=== PATIENT | female | born 1960 | race Caucasian/White ===

== ENCOUNTER → 2020-07-15 12:25 | Outpatient (CLI) | payer OTHER, MEDICAID, SELFPAY ==
--- NOTE | 2020-07-15 | DI.RAD.S_ITS ---
PROCEDURE: XR LUMBAR SPINE 2-3V INDICATIONS: LOW BACK PAIN TECHNIQUE: 3 views of the lumbar spine were acquired. COMPARISON: None. FINDINGS: Bones: 5 [id number] vertebrae are present. Postsurgical changes compatible with L5-S1 interbody fusion and right hip arthroplasty noted. There is normal bony alignment. No vertebral body compression fractures. No suspicious bony lesions. Moderate L2-L3 and L3-L4 degenerative disc disease. Mild L4-L5 degenerative disc disease. Mild L2-L3, L3-L4, L4-L5 and L5-S1 facet arthropathy. Soft tissues: Overlying bowel gas pattern is normal. No suspicious soft tissue calcifications. IMPRESSION: 1. Status post L5-S1 interbody fusion. 2. Multilevel degenerative disc disease. 3. Multilevel facet arthropathy. 4. No fracture. No acute osseous lesion. If symptoms and/or clinical suspicion for pathology persists, evaluation with MRI should be considered for further assessment. Dictated by: Emily Bowling MD, PhD on 07/15/2020 at 17:40 Approved by: Emily Bowling MD, PhD on 07/15/2020 at 17:41
[2020-07-15 12:55] LABS: Add Manual Diff / Slide Review NO; Basophils Absolute Auto 100 /uL (0-100); Eosinophils Absolute Auto 100 /uL (0-450); Eosinophils Percent Auto 1.1 % (2-4); Hematocrit 44.1 % (36-46); Hemoglobin 14.7 g/dL (12.0-16.0); Lymphocytes Absolute Auto 2000 /uL (1100-4500); Lymphocytes Percent Auto 31.2 % (25-40); Mean Corpuscular HGB Conc 33.4 % (30-36); Mean Corpuscular Hemoglobin 33.5 PG (26-34); Mean Corpuscular Volume 100.2 fL (80-100); Monocytes Absolute Auto 700 /uL (0-900); Monocytes Percent Auto 10.8 % (3-14); Neutrophils Absolute Auto 3500 /uL (1500-7000); Neutrophils Percent Auto 55.9 % (50-75); Platelet Count 254 X10^3/uL (150-400); Red Cell Distribution Width 12.7 % (11.6-14.8); White Blood Cell Count 6.3 X10^3/uL (4.5-11.0)
[2020-07-15 13:12] LABS: Alanine Aminotransferase 18 IU/L (<35); Albumin 4.1 g/dL (3.5-5.0); Albumin Globulin Ratio 1.5 (1.0-2.8); Alkaline Phosphatase 111 U/L (38-126); BUN Creatinine Ratio 28.8 (6-22); Bilirubin Total 0.2 mg/dL (0.2-1.3); Blood Urea Nitrogen 17 mg/dL (7-17); Calcium 9.5 mg/dL (8.4-10.2); Carbon Dioxide 30 mmol/L (22-32); Chloride 104 mmol/L (98-107); Cholesterol 193 mg/dL (140-199); Estimated Glomerular Filt Rate > 60.0 mL/min (>60); Globulin 2.7 g/dL (1.7-4.1); Glucose 95 mg/dL (80-110); HDL Cholesterol 62 mg/dL (40-60); HEMOLYSIS < 15 (0-50); LDL Cholesterol Calculated 108 mg/dL (<100); Potassium 3.8 mmol/L (3.4-5.1); Sodium 139 mmol/L (137-145); Total Protein 6.8 g/dL (6.3-8.2); Triglycerides 115 mg/dL (35-150)
[2020-07-15 13:21] LABS: Aspartate Aminotransferase 37 IU/L (14-36)
== END ==
PROVIDERS: PCP Physician Assistant; Referring Provider Physician Assistant; Visit Provider Physician Assistant
DX: M54.5 Low back pain (principal); R10.84 Generalized abdominal pain; Z13.220 Encounter for screening for lipoid disorders; M47.816 Spondylosis without myelopathy or radiculopathy, lumbar region; M47.817 Spondylosis without myelopathy or radiculopathy, lumbosacral region; M51.36 Other intervertebral disc degeneration, lumbar region; M51.37 Other intervertebral disc degeneration, lumbosacral region; Z98.1 Arthrodesis status
CPT/HCPCS: 36415; 72100; 80053; 80061; 85025

== ENCOUNTER → 2020-07-31 09:33 | Outpatient (CLI) | payer OTHER, MEDICAID, SELFPAY ==
--- NOTE | 2020-07-31 09:34 | DI.US.S_ITS ---
PROCEDURE: US ABDOMEN LIMITED INDICATIONS: ABNORMAL LFTS TECHNIQUE: Real-time focused scanning was performed of the abdomen, with image documentation. COMPARISON: None. FINDINGS: The liver demonstrates prominent size. The liver demonstrates generalized minimally increased echogenicity, as on image 15. This decreases ultrasound sensitivity for detection of hepatic masses. No findings of gallstones or sludge are seen. The gallbladder wall is not thickened, measuring 3 mm or less. No specific pericholecystic fluid is seen. The sonographic Martinez sign is negative. There is minimal biliary ductal dilatation, measuring 7.6 mm, with the upper limits of normal considered to be 7 mm. No significant pancreatic abnormality is seen on these images. IMPRESSION: Minimal fatty liver infiltration, with hepatomegaly. Minimal biliary dilatation is seen. Dictated by: Thiago Manning M.D. on 07/31/2020 at 9:35 Approved by: Thiago Manning M.D. on 07/31/2020 at 9:36
== END ==
PROVIDERS: PCP Physician Assistant; Referring Provider Physician Assistant; Visit Provider Physician Assistant
DX: R94.5 Abnormal results of liver function studies (principal); R16.0 Hepatomegaly, not elsewhere classified
CPT/HCPCS: 76705

== ENCOUNTER → 2020-08-14 19:05 | Outpatient (CLI) | payer OTHER, MEDICAID, SELFPAY ==
--- NOTE | 2020-08-14 19:07 | DI.MRI.S_ITS ---
PROCEDURE: MR ABDOMEN WO CON INDICATIONS: OTHER SPECIFIED DISEASES OF BILIARY TRACT TECHNIQUE: Coronal HASTE through the abdomen, axial 2-D FLASH in- and [id number], and breath-hold T2 FSE with fat saturation through the biliary system and pancreas. Oblique coronal and axial thin-slice HASTE, radial thick-slab HASTE centered on the extrahepatic bile ducts. Intravenous secretin: Not requested. COMPARISON: [facility], , ABDOMEN LIMITED, 07/31/2020, 10:21. FINDINGS: Image quality: Excellent. Pancreas and biliary system: No intrahepatic biliary ductal dilatation. The common hepatic duct and common bile duct measure 0.8 cm. No filling defects seen. Pancreas is normal in morphology, without adjacent soft tissue edema. Pancreatic duct is normal in caliber, without developmental anomalies. Gallbladder is not significantly distended. No gallstones. Other solid organs: Liver is enlarged in size. Mild hepatic steatosis. Spleen is normal in size. No adrenal nodules. Both kidneys are normal in size, without hydronephrosis. Small simple appearing T2 hyperintense renal cysts. Simple cyst at the superior pole of the left kidney measuring 2.8 cm. Nodes and vessels: No retroperitoneal or mesenteric adenopathy by size criteria. Aorta and inferior vena cava are normal in size. Bowel and peritoneum: Unenhanced bowel loops are normal in caliber. No free fluid. Lung bases: No basal pleural effusions. Heart size is normal. Bones and soft tissues: No ventral hernias. Bone marrow is of normal overall signal. IMPRESSION: 1. Minimal prominence of the extrahepatic bile duct measuring up to 0.8 cm. No intraluminal filling defect is seen. No intrahepatic biliary ductal dilatation. Clinical significance of this finding is uncertain. 2. No gallstones seen. 3. No pancreatic ductal dilatation. 4. Hepatomegaly. Dictated by: Fabián Paul M.D. on 08/17/2020 at 8:56 Approved by: Fabián Paul M.D. on 08/17/2020 at 9:05
== END ==
PROVIDERS: PCP Physician Assistant; Referring Provider Physician Assistant; Visit Provider Physician Assistant
DX: K83.8 Other specified diseases of biliary tract (principal); R16.0 Hepatomegaly, not elsewhere classified; N28.1 Cyst of kidney, acquired
CPT/HCPCS: 74181